=== PATIENT | female | born 1965 ===

== ENCOUNTER 2024-10-07 06:05 | Inpatient (IN) | payer OTHER ==
[2024-10-01 11:08] LABS: COVID-19 AG NEGATIVE (NEGATIVE)
[~2024-10-07] VITALS: Ht 152.4 cm; Wt 133.8 kg
[~2024-10-07 06:05] MED LIST: AMLODIPINE-OLM1 EAC2; CANDESARTAN-HC1 EAC2 PO; ESOMEPRAZOLE MA40 MG PO; HYOSCYAMINE0.125 M2 PO; LIPITOR20 MG
[2024-10-07] MEDS ORDERED: COLACE100 MG PO (10:42)
[2024-10-07] MEDS ORDERED: MEDROLPACK PO (10:42)
[2024-10-07] MEDS ORDERED: PERCOCET 5-3251 EACH PO (10:42)
[2024-10-07] MEDS ORDERED: ZOFRAN8 MG PO (10:43)
[2024-10-07] MEDS ORDERED: ENALAPRILAT DIHYDRATE 1.25 MG/ML VIAL IV PRN (10:45)
[2024-10-07] MEDS ORDERED: PROMETHAZINE HCL 50 MG/ML AMPUL IM PRN (10:45)
[2024-10-07] MEDS ORDERED: 0.9 % SODIUM CHLORIDE 1,000 ML IV SCH (10:45)
[2024-10-07] MEDS ORDERED: VANCOMYCIN HCL 1,000 MG VIAL ONE ×4 (11:50→21:01)
[2024-10-07] MEDS ORDERED: CEFAZOLIN SODIUM 1,000 MG VIAL ONE ×2 (11:50→20:18)
[2024-10-07] MEDS ORDERED: MORPHINE SULFATE 4 MG/ML CARTRIDGE IV SCH (13:00)
[2024-10-07] MEDS ORDERED: DOCUSATE SODIUM 100MG CAP PO SCH (13:00)
[2024-10-07] MEDS ORDERED: METHYLPREDNISOLONE ACETATE 80 MG/ML VIAL ONE (13:14)
[2024-10-07] MEDS ORDERED: METHYLPREDNISOLONE SOD SUCC 125 MG VIAL ONE ×2 (13:15→20:18)
[2024-10-07] MEDS ORDERED: HEMOSTATIC MATRIX WITH THROMBIN KIT TOP ONE (13:45)
[2024-10-07] MEDS ORDERED: MORPHINE SULFATE 4 MG/ML VIAL IV ONE ×2 (15:55→16:55)
[2024-10-07] MEDS ORDERED: METHYLPREDNISOLONE SOD SUCC 125 MG VIAL IV NR (16:00)
[2024-10-07] MEDS ORDERED: METHYLPREDNISOLONE SOD SUCC 125 MG VIAL IV SCH (17:00)
[2024-10-07] MEDS ORDERED: FAMOtidine 20 MG TABLET PO SCH (17:00)
[2024-10-07] MEDS ORDERED: CEFAZOLIN SODIUM 1,000 MG in 0.9 % SODIUM CHLORIDE 50 ML IV SCH (17:00)
[2024-10-07] MEDS ORDERED: ACETAMINOPHEN 500 MG GEL..CAP PO SCH (20:00)
[2024-10-07] MEDS ORDERED: ACETAMINOPHEN 500 MG GEL..CAP PO ONE (20:18)
[2024-10-07] MEDS ORDERED: VANCOMYCIN HCL 1,000 MG VIAL IV SCH (21:00)
[2024-10-07 22:26] VITALS: BP 129/73; O2SAT 95
[2024-10-08] MEDS ORDERED: SODIUM CHLORIDE 0.45 % 1,000 ML IV SCH
[2024-10-08 00:28] VITALS: O2SAT 90
[2024-10-08 00:36] VITALS: BP 133/75; O2SAT 94
[2024-10-08 03:28] VITALS: O2SAT 90
[2024-10-08] MEDS ORDERED: OxyCODONE HCL 5 MG TABLET (ROXICODONE) PO PRN (06:01)
[2024-10-08] MEDS ORDERED: VANCOMYCIN HCL 1,000 MG VIAL ONE (06:32)
[2024-10-08] MEDS ORDERED: AMLODIPINE BESYLATE 5 MG TABLET PO SCH (09:00)
[2024-10-08] MEDS ORDERED: ATORVASTATIN CALCIUM 20 MG TABLET PO SCH (09:00)
[2024-10-08] MEDS ORDERED: TAMSULOSIN HCL 0.4 MG CAP PO SCH (09:00)
[2024-10-08] MEDS ORDERED: CANDESARTAN CILEXETIL 32 MG TABLET PO SCH (09:00)
[2024-10-08 09:19] VITALS: O2SAT 96
== END 2024-10-08 13:18 | disposition home or self-care (01) | DRG 472 ==
LOC: CIR.AMB 06:05 → O/R 13:38 → SURH 18:26
PROVIDERS: ADMIT Orthopaedic Surgery Orthopaedic Surgery of the Spine; ATTEND Orthopaedic Surgery Orthopaedic Surgery of the Spine
PROC: 0RT30ZZ Resection of Cervical Vertebral Disc, Open Approach (ICD-10-PCS; 2024-10-07)
PROC: 07DS0ZZ Extraction of Vertebral Bone Marrow, Open Approach (ICD-10-PCS; 2024-10-07)
PROC: 4A1104G Monitoring of Peripheral Nervous Electrical Activity, Intraoperative, Open Approach (ICD-10-PCS; 2024-10-07)
PROC: 0RG20A0 Fusion of 2 or more Cervical Vertebral Joints with Interbody Fusion Device, Anterior Approach, Anterior Column, Open Approach (ICD-10-PCS; principal; 2024-10-07 12:30)
PROC: 4A12X4Z Monitoring of Cardiac Electrical Activity, External Approach (ICD-10-PCS; 2024-10-08)
DX: M43.12 Spondylolisthesis, cervical region (principal); G99.2 Myelopathy in diseases classified elsewhere; M50.023 Cervical disc disorder at C6-C7 level with myelopathy; M50.022 Cervical disc disorder at C5-C6 level with myelopathy; I10 Essential (primary) hypertension; Z98.1 Arthrodesis status